=== PATIENT | female | born 1995 | race Two or more races ===

== ENCOUNTER → 2024-12-04 | Outpatient (CLI) | payer OTHER, SELFPAY ==
--- NOTE | 2024-12-04 15:19 | XR_ITS ---
Examination: Wrist, right 3 views Technique: Wrist AP, oblique, lateral 3 views Date and time of exam: December 04, 2024 1522 hours INDICATIONS: Paresthesias and weakness right wrist 2 days FINDINGS: Mild narrowing radiocarpal joint No fracture or dislocation No foreign body No avascular necrosis IMPRESSION: No fracture or dislocation No erosive arthritis
== END | disposition home or self-care (01) ==
PROVIDERS: PCP Physician Assistant; Referring Provider Physician Assistant; Visit Provider Physician Assistant
DX: S66.011A Strain of long flexor muscle, fascia and tendon of right thumb at wrist and hand level, initial encounter (principal); X58.XXXA Exposure to other specified factors, initial encounter
CPT/HCPCS: 73110